=== PATIENT | male | born 1965 | race Two or more races ===

== ENCOUNTER 2025-05-06 05:35 | Day surgery (SDC) | payer MEDICAID, SELFPAY ==
--- NOTE | 2025-05-03 08:32 | EKG_ITS ---
[facility] Test Date: 2025-05-03 Pat Name: DANA CLARKE Department: Room: - Gender: Male Labeling Specialist: ANKITA : 1965 Requested By: Silvestre Roman Order Number: [id number] Reading MD: Silvestre Roman Measurements Intervals [place] Rate: 68 P: 38 LA: 171 QRS: -21 QRSD: 121 T: 30 QT: 382 QTc: 408 Interpretive Statements SINUS RHYTHM BORDERLINE LEFT AXIS DEVIATION [QRS AXIS < -20] MODERATE INTRAVENTRICULAR CONDUCTION DELAY [110+ ms QRS DURATION] No previous ECG available for comparison /[id number]/[email or web address]/[id number]
[2025-05-03 11:42] VITALS: BMI 44.6
[2025-05-03 12:20] LABS: Collection Type, Urine Clean Catch; Squamous Epithelial Cell,Urine 0 /hpf (0-5)
[2025-05-03 12:40] LABS: Basophils # (Auto) 0.1 Thou/mm3 (0.0-0.2); Basophils % (Auto) 1 % (0-2.5); Eosinophils # (Auto) 0.1 Thou/mm3 (0.0-0.5); Eosinophils % (Auto) 2 % (0-10); Hematocrit 45.7 % (41.0-53.0); Hemoglobin 15.3 g/dL (13.5-16.0); Immature Granulocytes % (Auto) 0 % (0-0); Immature Granulocytes Auto 0.02 Thou/mm3 (0.00-0.00); Lymphocytes # (Auto) 1.9 Thou/mm3 (1.0-4.8); Lymphocytes % (Auto) 23 % (10-50); Mean Corpuscular HGB Conc 33.5 g/dl (31.0-37.0); Mean Corpuscular Hemoglobin 30.4 pg (25.0-35.0); Mean Corpuscular Volume 91 fL (80-100); Monocytes # (Auto) 0.9 Thou/mm3 (0.0-0.8); Monocytes % (Auto) 10 % (0-12); Neutrophils # (Auto) 5.5 Thou/mm3 (1.8-7.7); Neutrophils % (Auto) 65 % (37-80); Nucleated Red Blood Cell % 0 /100 WBC (0); Platelet Count 199 Thou/mm3 (140-440); RDW Standard Deviation 46.1 fL (35.1-43.9); Red Blood Count 5.04 Miln/mm3 (4.50-5.90); White Blood Count 8.5 Thou/mm3 (3.8-10.6)
[2025-05-03 12:47] LABS: Partial Thromboplastin Time 29.6 Seconds (22.0-36.0)
[2025-05-03 12:51] LABS: Alanine Aminotransferase 22 U/L (10-49); Albumin, Serum 4.5 gm/dL (3.5-5.0); Albumin/Globulin Ratio 1.7 (1.2-2.2); Alkaline Phosphatase 95 U/L (46-116); Anion Gap 9 (7-16); Aspartate Amino Transferase 22 U/L (0-34); BUN/Creatinine Ratio 12 Ratio (12-20); Bilirubin,Total 0.5 mg/dL (0.3-1.2); Blood Urea Nitrogen 11 mg/dL (9-23); Calcium 9.1 mg/dL (8.3-10.6); Calcium (Corrected) 9.1 mg/dL (8.5-10.1); Carbon Dioxide 27.5 mMol/L (20.0-31.0); Chloride 107 mMol/L (98-107); Creatinine (Component) 0.9 mg/dL (0.6-1.3); Estimated Creatinine Clearance 110.6 mL/min (>60); Globulin 2.7 gm/dL (2.3-3.5); Glucose 86 mg/dL (74-106); Osmolality,Calculated 283 (275-295); Potassium 3.7 mMol/L (3.4-5.1); Sodium 143 mMol/L (136-145); Total Protein 7.2 gm/dL (5.7-8.2); eGFR > 60 See Note
[2025-05-03 13:02] LABS: Bilirubin,Urine Negative (Negative); Blood,Urine 1+ (Negative); Clarity,Urine Clear (Clear/Hazy); Color,Urine Lt-Yellow (Lt Yel-Yel); Glucose, Urine Negative (Negative); Ketones,Urine Negative (Negative); Leukocyte Esterase,Urine Negative (Negative); Nitrite,Urine Negative (Negative); Protein,Urine Negative (Neg - Trace); RBC,Urine 7 /hpf (0-3); Specific Gravity,Urine 1.022 (1.001-1.035); Urobilinogen,Urine Negative mg/dL (0.0-1.0); WBC,Urine < 1 /hpf (0-5)
[2025-05-06] VITALS (9 sets, daily range): BP systolic 125–150; BP diastolic 79–95; PULSE 53–73; RESP 12–20; TEMP 36.4–36.7; O2SAT 95–100; BMI 47.2
[2025-05-06] MEDS: RINGERS LACTATED 1000 ML 1,000 ML 60 ML IV (06:51)
--- NOTE | 2025-05-06 07:32 | SUR.PREOP ---
Patient expressed gratitude for prayer before their procedure
--- NOTE | 2025-05-06 10:00 | SUR.PHASEI ---
1000 Patient arrived to recovery resting comfortably in [facility] on oxygen 10L via oxy mask, breathing unlabored, vital signs stable, dressing intact to abdomen; anival, telf, gauze, abd, medipore tape, abdominal binder, no bleeding noted, denies nausea, report received from Darya HAGEN and Dr. Antony
--- NOTE | 2025-05-06 10:04 | PD.SUROPNT ---
Date of Procedure 05/06/25 Pre Op Diagnosis Incarcerated large umbilical hernia Morbid obesity Post Op Diagnosis Same. Procedure Repair of incarcerated large umbilical hernia measuring about 11 cm and omentectomy and implantation of Ventrio ST round patch 14.5 cm. On 05/06/2025 Findings This morbidly obese gentleman had a large umbilical hernia that measured about 11 cm in diameter and the abdominal panniculus is about 7 cm deep. He had and omentum adherent to the sac and incarcerated and scarred down and there was no bowel in the hernia. The omentum needed to be resected because of the loss of domain as well as scarring and adhesions. Procedure Description The patient is interviewed in the preoperative area and the procedure was discussed in detail with the patient including expectation of outcomes. Explanation of the technique and complications. An informed consent was obtained. Anesthesia consent was obtained by the anesthesiologist. The hernia sites were marked on the surface. Patient is brought back to the operating room. The patient is positioned supine on the operating table and general anesthesia is administered in a satisfactory manner. The chest abdomen and thigh genitalia regions are prepped and draped in usual manner. IV antibiotics were given and a timeout procedure was carried out. The hernia defects were identified and marked on the surface to assess the extent of the procedure. Then the local anesthesia quarter percent Marcaine with epinephrine is used. Vertical incision is made around the umbilicus. Dissection is carried out in the subcutaneous tissue to the fascia and the hernia ring is identified. Gentle dissection is carried out and hernia sac is isolated. The sac is opened and was removed as specimen. There were significant dense adhesions of the omentum within the hernia sac. The omentum could not be reduced because of the large incarcerated portion of the omentum and portion of the omentum is scarred down and needed at and needed to be removed. Partial omentectomy is carried out by sequentially clamping with Roche clamps and dividing the omentum. These were all tied with 2-0 silk ties. After that the contents are reduced. Hemostasis is achieved. Dissection is carried out circumferentially from the peritoneal side to make sure there were no adhesions and bowel attached to the anterior abdominal wall. Lysis of adhesions is carried out on the peritoneal side releasing the omental adhesions circumferentially to about 10 cm around. The defect is measured. It is about 11.5 cm in length and 6 cm in the width. The laps and instrument counts are obtained they are correct x2 and then I selected a Ventrio ST round 14.5 cm diameter patch to be placed in the underlay position. The patch is secured in the preperitoneal space and attached to the fascia in circumferential manner by interrupted O' Ethibond stitches. Laps and instrument counts were correct ?2. The defect in the fascia is closed over the patch. Patch was previously irrigated with gentamicin solution. Hemostasis is achieved. Operative field is thoroughly irrigated with saline solution and the subcutaneous tissues approximated with 3-0 Vicryl interrupted suture. The skin is approximated by anival. Sterile dressing and abdominal binder is applied. Patient tolerated the procedure very well complications none. Patient is transferred to recovery room in a satisfactory condition. Anesthesia GETA Drains None. Implants Ventrio ST round patch measuring 14.5 cm in diameter. Pathology / specimen Other (Umbilical hernia sac and omentum) Estimated Blood Loss 10 Condition Stable Disposition PACU Surgeon Silvestre Roman MD Surgical Staff Operation Date: 05/06/25 07:00 Case Staff Anesthesiologist: Norm Antony instructor adjunct surgical technician with the surgical technology student
[2025-05-06] MEDS: fentaNYL CIT INJ 50 mCg/ML AMP 2ML IVP ×3 (10:23→10:44)
--- NOTE | 2025-05-06 11:36 | SUR.PHASEII ---
1136 Patient meets discharge criteria from recovery, awake and alert, breathing unlabored, vital signs stable, per patient his pain is tolerable, dressing intact; no bleeding noted, ate a jello and drinking 7up; denies nausea, voided in the restroom prior to discharge, assisted with dressing into his clothing by his daughter, discharge instructions given to patient and patients daughter with the assistance of the telephone salvationist Joseluis ID#[id number], daughter signed discharge instructions. Patient given all her belongings prior to discharge, transported via wheelchair and left in a private vehicle.
== END 2025-05-06 11:36 | disposition home or self-care (01) ==
PROVIDERS: PCP Behavior Technician; Referring Provider Specialist; Visit Provider Specialist
PROC: (CPT 49596; principal; 2025-05-06 07:00)
DX: K42.0 Umbilical hernia with obstruction, without gangrene (principal); K66.0 Peritoneal adhesions (postprocedural) (postinfection); E66.01 Morbid (severe) obesity due to excess calories; Z01.810 Encounter for preprocedural cardiovascular examination; Z68.42 Body mass index [BMI] 45.0-49.9, adult
CPT/HCPCS: 49596; 36415; 80053; 81001; 85025; 85730; 93005; A4217; A4649; C1781; J0131; J0690; J1100; J1580; J1885; J2250; J2371; J2405; J2704; J3010; J3490; J7030; J7120; A9270